=== PATIENT | female | born 1940 | race Caucasian/White ===

== ENCOUNTER 2023-04-11 11:06 | Inpatient (IN) | payer MEDICARE, BC ==
[2023-04-11] MEDS ORDERED: MORPHINE SULFATE 4 MG/ML SYRINGE IV STA (11:30)
--- NOTE | 2023-04-11 11:33 | ED ---
General Adult HPI - General Chief complaint: Back Pain/Injury Stated complaint: Back pain Time Seen by Provider: 04/11/23 11:14 Source: patient, family, RN notes reviewed Mode of arrival: ambulatory Limitations: no limitations - History of Present Illness Initial comments: Patient is a pleasant 82-year-old female presenting to the emergency department with concerns with back pain. Onset of symptoms was around 1 AM. Patient did have to turn back to turn off her lamp when going to bed. Patient questions if she pulled her back at that time. Patient denies dyspnea. Patient states discomfort does increase with movement and deep breaths. Patient does have chronic lower back pain however this is more upper. Patient states when she takes a deep breath pain does radiate towards the chest. Otherwise no chest discomfort at all. - Related Data Allergies Allergy/AdvReac Type Severity Reaction Status Date / Time No Known Allergies Allergy Verified 04/11/23 11:12 Review of Systems ROS Statement: Those systems with pertinent positive or pertinent negative responses have been documented in the HPI. ROS Other: All systems not noted in ROS Statement are negative. Constitutional: Denies: fever Eyes: Denies: eye pain ENT: Denies: ear pain Respiratory: Denies: dyspnea Cardiovascular: Reports: as per HPI Endocrine: Denies: fatigue Gastrointestinal: Denies: abdominal pain Genitourinary: Denies: dysuria Musculoskeletal: Reports: as per HPI Past Medical History Additional Past Medical History / Comment(s): High Cholestrol History of Any Multi-Drug Resistant Organisms: None Reported Past Surgical History: No Surgical Hx Reported Past Psychological History: No Psychological Hx Reported Smoking Status: Current every day smoker Past Alcohol Use History: None Reported Past Drug Use History: None Reported General Exam Limitations: no limitations General appearance: alert, in no apparent distress Head exam: Present: normocephalic Eye exam: Present: normal appearance Neck exam: Present: normal inspection Respiratory exam: Present: normal lung sounds bilaterally. Absent: chest wall tenderness Cardiovascular Exam: Present: regular rate, normal rhythm Expanded Peripheral pulses: 2+: Radial (R), Radial (L), Dorsalis Pedis (R), Dorsalis Pedis (L) GI/Abdominal exam: Present: soft. Absent: distended, tenderness, pulsatile mass Extremities exam: Present: normal inspection. Absent: pedal edema, calf tenderness Back exam: Present: tenderness (Mild tenderness right upper thoracic region). Absent: vertebral tenderness Neurological exam: Present: alert. Absent: motor sensory deficit Psychiatric exam: Present: normal affect, normal mood Skin exam: Present: normal color Course Vital Signs 04/11/23 04/11/23 11:08 12:12 Temperature 98.2 F Pulse Rate 112 H 102 H Respiratory 17 20 Rate Blood Pressure 112/77 130/80 O2 Sat by Pulse 98 99 Oximetry EKG Findings - EKG Results: EKG: interpreted by ERMD (Nonspecific ST-T), sinus rhythm, normal axis, normal QRS EKG shows: tachycardia Medical Decision Making - Medical Decision Making Was pt. sent in by a medical professional or institution (, PA, PNEUMATIC DRUM SANDER, urgent ca re, hospital, or halfway...) When possible be specific @ -No Did you speak to anyone other than the patient for history (EMS, parent, family, police, friend...)? What history was obtained from this source @ -No Did you review nursing and triage notes (agree or disagree)? Why? @ -I reviewed and agree with nursing and triage notes Were old charts reviewed (outside hosp., previous admission, EMS record, old EKG, old radiological studies, urgent care reports/EKG's, halfway records)? Report findings @ -No old charts were reviewed Differential Diagnosis (chest pain, altered mental status, abdominal pain women, abdominal pain men, vaginal bleeding, weakness, fever, dyspnea, syncope, headache, dizziness, GI bleed, back pain, seizure, CVA, palpatations, mental health, musculoskeletal)? @ -Differential Chest Pain: Stable Angina, Unstable Angina, STEMI, NSTEMI Aortic Dissection, Pneumothorax, Musculoskeletal, Esophageal Spasm GERD, Cholecystitis, Pancreatitis, Zoster, this is not meant to be an all-inclusive list. EKG interpreted by me (3pts min.). @ -As above X-rays interpreted by me (1pt min.). @ -Chest x-ray shows no acute process CT interpreted by me (1pt min.). @ -None done U/S interpreted by me (1pt. min.). @ -None done What testing was considered but not performed or refused? (CT, X-rays, U/S, labs)? Why? @ -None What meds were considered but not given or refused? Why? @ -None Did you discuss the management of the patient with other professionals (professionals i.e. , PA, PNEUMATIC DRUM SANDER, lab, RT, psych nurse, social service coordinator, press operator printing, teacher, benefits officer, immigration case worker)? Give summary @ -Case was discussed with Dr. Meza, who will admit covering Dr. Gomez. Case also discussed with Dr. Pichardo who agrees with heparin and will consult Was smoking cessation discussed for >3mins.? @ -No Was critical care preformed (if so, how long)? @ -32 minutes critical care time Were there social determinants of health that impacted care today? How? (Homelessness, low income, unemployed, alcoholism, drug addiction, transportati on, low edu. Level, literacy, decrease access to med. care, intermediate, rehab)? @ -No Was there de-escalation of care discussed even if they declined (Discuss DNR or withdrawal of care, Hospice)? DNR status @ -No What co-morbidities impacted this encounter? (DM, HTN, Smoking, COPD, CAD, Cancer, CVA, ARF, Chemo, Hep., AIDS, mental health diagnosis, sleep apnea, morbid obesity)? @ -None Was patient admitted / discharged? Hospital course, mention meds given and route, prescriptions, significant lab abnormalities, going to OR and other pertinent info. @ -Patient reevaluated and symptom-free. Patient does have elevated troponin and will be admitted with cardiac consult. Heparin will be started. Admission orders written. Undiagnosed new problem with uncertain prognosis? @ -No Drug Therapy requiring intensive monitoring for toxicity (Heparin, Nitro, Insulin, Cardizem)? @ -Patient will be placed on heparin drip needing monitoring Were any procedures done? @ -No Diagnosis/symptom? @ -NSTEMI a Acute, or Chronic, or Acute on Chronic? @ acute ] Uncomplicated (without systemic symptoms) or Complicated (systemic symptoms)? @ -default Side effects of treatment? @ -No Exacerbation, Progression, or Severe Exacerbation? @ -No Poses a threat to life or bodily function? How? (Chest pain, [place], [place], pneumonia, PE, COPD, DKA, ARF, appy, cholecystitis, CVA, Diverticulitis, Homicidal, Suicidal, threat to staff... and all critical care pts) @ -No - Lab Data Result diagrams: 04/11/23 11:38 11/18/23 11:38 Lab Results 04/11/23 04/11/23 04/11/23 Range/Units 11:38 11:38 11:38 WBC 12.4 H (3.8-10.6) k/uL RBC 4.31 (3.80-5.40) m/uL Hgb 13.9 (11.4-16.0) gm/dL Hct 42.1 (34.0-46.0) % MCV 97.7 (80.0-100.0) fL MCH 32.1 (25.0-35.0) pg MCHC 32.9 (31.0-37.0) g/dL RDW 12.8 (11.5-15.5) % Plt Count 159 (150-450) k/uL MPV 8.1 Neutrophils % 87 % Lymphocytes % 6 % Monocytes % 5 % Eosinophils % 1 % Basophils % 0 % Neutrophils # 10.8 H (1.3-7.7) k/uL Lymphocytes # 0.8 L (1.0-4.8) k/uL Monocytes # 0.6 (0-1.0) k/uL Eosinophils # 0.1 (0-0.7) k/uL Basophils # 0.0 (0-0.2) k/uL PT 10.4 (10.0-12.5) sec INR 0.9 (<1.2) APTT 24.8 (22.0-30.0) sec D-Dimer 0.58 (<0.60) mg/L FEU Sodium 138 (137-145) mmol/L Potassium 4.5 (3.5-5.1) mmol/L Chloride 102 (98-107) mmol/L Carbon Dioxide 25 (22-30) mmol/L Anion Gap 11 mmol/L BUN 28 H (7-17) mg/dL Creatinine 1.40 H (0.52-1.04) mg/dL Est GFR (CKD-EPI)AfAm 40 (>60 ml/min/1.73 sqM) Est GFR (CKD-EPI)NonAf 35 (>60 ml/min/1.73 sqM) Glucose 131 H (74-99) mg/dL Calcium 9.3 (8.4-10.2) mg/dL Magnesium 1.9 (1.6-2.3) mg/dL Total Bilirubin 0.7 (0.2-1.3) mg/dL AST 48 H (14-36) U/L ALT 24 (4-34) U/L Alkaline Phosphatase 83 (38-126) U/L Troponin I (0.000-0.034) ng/mL Total Protein 6.8 (6.3-8.2) g/dL Albumin 4.0 (3.5-5.0) g/dL 04/11/23 Range/Units 11:38 WBC (3.8-10.6) k/uL RBC (3.80-5.40) m/uL Hgb (11.4-16.0) gm/dL Hct (34.0-46.0) % MCV (80.0-100.0) fL MCH (25.0-35.0) pg MCHC (31.0-37.0) g/dL RDW (11.5-15.5) % Plt Count (150-450) k/uL MPV Neutrophils % % Lymphocytes % % Monocytes % % Eosinophils % % Basophils % % Neutrophils # (1.3-7.7) k/uL Lymphocytes # (1.0-4.8) k/uL Monocytes # (0-1.0) k/uL Eosinophils # (0-0.7) k/uL Basophils # (0-0.2) k/uL PT (10.0-12.5) sec INR (<1.2) APTT (22.0-30.0) sec D-Dimer (<0.60) mg/L FEU Sodium (137-145) mmol/L Potassium (3.5-5.1) mmol/L Chloride (98-107) mmol/L Carbon Dioxide (22-30) mmol/L Anion Gap mmol/L BUN (7-17) mg/dL Creatinine (0.52-1.04) mg/dL Est GFR (CKD-EPI)AfAm (>60 ml/min/1.73 sqM) Est GFR (CKD-EPI)NonAf (>60 ml/min/1.73 sqM) Glucose (74-99) mg/dL Calcium (8.4-10.2) mg/dL Magnesium (1.6-2.3) mg/dL Total Bilirubin (0.2-1.3) mg/dL AST (14-36) U/L ALT (4-34) U/L Alkaline Phosphatase (38-126) U/L Troponin I 4.730 H* (0.000-0.034) ng/mL Total Protein (6.3-8.2) g/dL Albumin (3.5-5.0) g/dL Critical Care Time Critical Care Time: Yes Total Critical Care Time: 32 Disposition Clinical Impression: NSTEMI (non-ST elevated myocardial infarction) Disposition: ADMITTED IP TO THIS [facility] Condition: Serious Is patient prescribed a controlled substance at d/c from ED?: No Referrals: Willy Gomez MD [Primary Care Provider] - 1-2 days Time of Disposition: 12:57
[2023-04-11 11:50] LABS: Basophils % (A) 0 %; Eosinophils # (A) 0.1 k/uL (0-0.7); Eosinophils % (A) 1 %; HCT 42.1 % (34.0-46.0); HGB 13.9 gm/dL (11.4-16.0); Lymphocytes # (A) 0.8 k/uL (1.0-4.8); Lymphocytes % (A) 6 %; MCH 32.1 pg (25.0-35.0); MCHC 32.9 g/dL (31.0-37.0); MCV 97.7 fL (80.0-100.0); Mean Platelet Volume 8.1; Monocytes # (A) 0.6 k/uL (0-1.0); Monocytes % (A) 5 %; Neutrophils # (A) 10.8 k/uL (1.3-7.7); Neutrophils % (A) 87 %; Platelet Count 159 k/uL (150-450); RBC 4.31 m/uL (3.80-5.40); RDW 12.8 % (11.5-15.5); WBC 12.4 k/uL (3.8-10.6)
[2023-04-11 12:04] LABS: ALT 24 U/L (4-34); AST 48 U/L (14-36); African American GFR (CKD) 40 (>60 ml/min/1.73 sqM); Alkaline Phosphatase 83 U/L (38-126); Anion Gap 11 mmol/L; Blood Urea Nitrogen 28 mg/dL (7-17); Calcium 9.3 mg/dL (8.4-10.2); Carbon Dioxide 25 mmol/L (22-30); Chloride 102 mmol/L (98-107); Glucose 131 mg/dL (74-99); INR 0.9 (<1.2); Magnesium 1.9 mg/dL (1.6-2.3); Non-African American GFR(CKD) 35 (>60 ml/min/1.73 sqM); Partial Thromboplastin Time 24.8 sec (22.0-30.0); Potassium 4.5 mmol/L (3.5-5.1); Prothrombin Time 10.4 sec (10.0-12.5); Sodium 138 mmol/L (137-145); Total Bilirubin 0.7 mg/dL (0.2-1.3); Total Protein 6.8 g/dL (6.3-8.2)
--- NOTE | 2023-04-11 12:22 | XR ---
EXAMINATION TYPE: XR chest 2V DATE OF EXAM: 04/11/2023 COMPARISON: None HISTORY: 82-year-old female with chest pain TECHNIQUE: AP and lateral views FINDINGS: Heart normal size. Atherosclerotic calcifications. Interstitial prominence and hyperinflation. No con solidation or pleural effusion. IMPRESSION: COPD and chronic appearing changes. No acute process seen.
[2023-04-11] MEDS ORDERED: ONDANSETRON 4 MG/2 ML VIAL IVP STA (12:42)
[2023-04-11] MEDS ORDERED: MORPHINE SULFATE 2 MG/ML SYRINGE IVP PRN (12:57)
[2023-04-11] MEDS ORDERED: HEPARIN SODIUM 1,000 UN/ML (10ML VL) IV ONE (12:57)
[2023-04-11] MEDS ORDERED: ASPIRIN 81 MG PO STA (12:57)
[2023-04-11] MEDS ORDERED: NITROGLYCERIN SL TABS 0.4 MG TAB SUBLINGUAL PRN (12:57)
--- NOTE | 2023-04-11 13:17 | P.HPIM ---
History of Present Illness H&P Date: 04/11/23 Maria L Smith, is an 82-year-old female patient of Dr. Gomez, who presented to [facility] emergency room with a chief complaint of upper back pain, that started at 1 AM, initially patient thought that she has pulled a muscle, however her pain worsened, and was increasing with movement and taking deep breath, she decided to come to emergency room for further evaluation. She was evaluated in the emergency room vital examination on presentation revealed a temperature of 98.2 pulse 112 respiration 17 blood pressure 112/77 pulse ox 98% on room air Laboratory data reveals a white blood count of 12.4 hemoglobin 13.9 platelet count 159 d-dimer 0.59 BUN 28 creatinine 1.4 troponin level 4.73 Testing in the emergency room revealed EKG done in the emergency room revealed sinus tachycardia with right atrial enlargement and left atrial enlargement,, and ST depression in anterior leads, chest x-ray revealed COPD and chronic appearing changes no acute process seen. Patient was admitted to medical floor for further evaluation and treatment. Patient has a known history of hyperlipidemia and chronic tobacco use, she is somewhat maintained on Lipitor 40 mg by mouth daily otherwise she denies any medical problems and denies taking any other medications. Past Medical History Additional Past Medical History / Comment(s): High Cholestrol History of Any Multi-Drug Resistant Organisms: None Reported Past Surgical History: No Surgical Hx Reported Past Psychological History: No Psychological Hx Reported Smoking Status: Current every day smoker Past Alcohol Use History: None Reported Past Drug Use History: None Reported Medications and Allergies Allergies Allergy/AdvReac Type Severity Reaction Status Date / Time No Known Allergies Allergy Verified 04/11/23 11:12 Physical Exam Vitals: Vital Signs Temp Pulse Resp BP Pulse Ox 04/11/23 12:12 102 H 20 130/80 99 04/11/23 11:08 98.2 F 112 H 17 112/77 98 Intake and Output 04/10/23 04/11/23 04/11/23 22:59 06:59 14:59 Other: Weight 48.081 kg In general patient is alert and oriented x 3 in no distress HEENT head normocephalic and atraumatic Neck is supple no JVD no goiter no lymphadenopathy no carotid bruit Chest examination is clear to auscultation no crackles no wheezing Cardiac exam reveals regular heart sounds S1 and S2 no gallops no murmurs Abdomen is soft nontender no organomegaly with normal bowel sounds Extremity exam reveals no edema no cyanosis or clubbing Neurological examination reveals no gross focal deficits Results CBC & Chem 7: 04/11/23 11:38 04/11/23 11:38 Labs: Abnormal Lab Results - Last 24 Hours (Table) 04/11/23 04/11/23 04/11/23 Range/Units 11:38 11:38 11:38 WBC 12.4 H (3.8-10.6) k/uL Neutrophils # 10.8 H (1.3-7.7) k/uL Lymphocytes # 0.8 L (1.0-4.8) k/uL BUN 28 H (7-17) mg/dL Creatinine 1.40 H (0.52-1.04) mg/dL Glucose 131 H (74-99) mg/dL AST 48 H (14-36) U/L Troponin I 4.730 H* (0.000-0.034) ng/mL Assessment and Plan Plan: Acute upper back pain Elevated troponin level Underlying history of hyperlipidemia Underlying history of tobacco use At this time patient was evaluated in emergency room and started on IV heparin Home medications reviewed and reordered Serial EKG and cardiac enzymes ordered Echocardiogram ordered cardiology consultation requested Will follow closely
[2023-04-11] MEDS: HEPARIN SOD,PORK IN 0.45% NACL 25,000 UNIT in 0.45% NACL 1 250ML.BAG IV SCH (13:32)
--- NOTE | 2023-04-11 16:29 | CA ---
Transthoracic Echo Report Name: Maria L Smith Age: 82 Gender: F : 1940 Exam Date: 04/11/2023 13:57 Exam Location: [place] Echo Ht (in): 64 Wt (lb): 106 Ordering Physician: Navdeep Hernandes DO Attending/Referring Phys: Steam Heating Installer Ebonie Conde [facility] Procedure CPT: Indications: nstemi Cardiac Hx: Technical Quality: Technically difficult study Contrast 1: Total Dose (mL): Contrast 2: Total Dose (mL): MEASUREMENTS (Male / Female) Normal Values 2D ECHO LV Diastolic Diameter PLAX 3.2 cm 4.2 - 5.9 / 3.9 - 5.3 cm LV Systolic Diameter PLAX 1.9 cm IVS Diastolic Thickness 1.2 cm 0.6 - 1.0 / 0.6 - 0.9 cm LVPW Diastolic Thickness 1.0 cm 0.6 - 1.0 / 0.6 - 0.9 cm LV Relative Wall Thickness 0.7 LVOT Diameter 2.0 cm Ascending Aorta Diameter 2.8 cm M-MODE Aortic Root Diameter MM 2.3 cm LA Systolic Diameter MM 2.7 cm LA Ao Ratio MM 1.2 AV Cusp Separation MM 1.7 cm DOPPLER AV Peak Velocity 119.8 cm/s AV Peak Gradient 5.7 mmHg AV Mean Velocity 96.1 cm/s AV Mean Gradient 3.9 mmHg AV Velocity Time Integral 19.0 cm LVOT Peak Velocity 89.4 cm/s LVOT Peak Gradient 3.2 mmHg LVOT Velocity Time Integral 15.8 cm LVOT Stroke Volume 48.8 cm??? LVOT Stroke Volume Index 32.7 ml/m??? LVOT Cardiac Index 3694.3 cm???/min???m??? AV Area Cont Eq vti 2.6 cm??? AV Area Cont Eq pk 2.3 cm??? Mitral E Point Velocity 59.4 cm/s Mitral A Point Velocity 98.8 cm/s Mitral E to A Ratio 0.6 MV Deceleration Time 123.7 ms LV E' Lateral Velocity 5.2 cm/s Mitral E to LV E' Lateral Ratio 11.5 LV E' Septal Velocity 5.1 cm/s Mitral E to LV E' Septal Ratio 11.8 Right Atrial Pressure 3.0 mmHg FINDINGS Left Ventricle Moderately increased septal wall thickness. Mildly increased posterior wall thickness. Small left ventricular cavity. Hyperdynamic left ventricular systolic function. Left ventricular ejection fraction is estimated at 65-70%. Right Ventricle Normal right ventricular size. Unable to estimate the right ventricular systolic pressure. Right Atrium Normal right atrial size. Left Atrium Normal left atrial size. Mitral Valve Mitral annular calcification. Mitral valve thickened. No mitral regurgitation. Aortic Valve Trileaflet aortic valve. Aortic valve sclerosis. No aortic regurgitation. Tricuspid Valve Tricuspid valve not well visualized. No tricuspid regurgitation. Pulmonic Valve Pulmonic valve not well visualized. Pericardium Minimal pericardial effusion (normal variant). Aorta Normal size aortic root and proximal ascending aorta. CONCLUSIONS LVH with hyperdynamic function Previewed by: Dr. Renzo Pichardo MD (Electronically Signed) Final Date: 11 April 2023 16:29
[2023-04-12] MEDS ORDERED: ASPIRIN 325 MG TAB PO SCH (09:00)
--- NOTE | 2023-04-12 09:42 | P.PN ---
Subjective Progress Note Date: 04/12/23 Maria L Smith, is an 82-year-old female patient of Dr. Gomez, who presented to [facility] emergency room with a chief complaint of upper back pain, that started at 1 AM, initially patient thought that she has pulled a muscle, however her pain worsened, and was increasing with movement and taking deep breath, she decided to come to emergency room for further evaluation. She was evaluated in the emergency room vital examination on presentation revealed a temperature of 98.2 pulse 112 respiration 17 blood pressure 112/77 pulse ox 98% on room air Laboratory data reveals a white blood count of 12.4 hemoglobin 13.9 platelet count 159 d-dimer 0.59 BUN 28 creatinine 1.4 troponin level 4.73 Testing in the emergency room revealed EKG done in the emergency room revealed sinus tachycardia with right atrial enlargement and left atrial enlargement,, and ST depression in anterior leads, chest x-ray revealed COPD and chronic appearing changes no acute process seen. Patient was admitted to medical floor for further evaluation and treatment. Patient has a known history of hyperlipidemia and chronic tobacco use, she is somewhat maintained on Lipitor 40 mg by mouth daily otherwise she denies any medical problems and denies taking any other medications. On 04/12/2023 patient is alert and oriented 3. Patient remains on heparin drip. Awaiting cardiology input. Current vital signs temp 98.1, heart rate 84, respiratory rate 14, blood pressure 94/54. Objective - Vital Signs Vital signs: Vital Signs Temp 98.1 F 04/12/23 03:26 Pulse 84 04/12/23 03:26 Resp 14 04/12/23 03:26 BP 95/57 04/12/23 03:26 Pulse Ox 95 04/12/23 03:26 FiO2 Intake & Output 04/11/23 04/12/23 04/12/23 18:59 06:59 18:59 Intake Total 120 Balance 120 Weight 48.081 kg 44.5 kg Intake: Oral 120 Other: # Voids 1 1 - Exam In general patient is alert and oriented x 3 in no distress HEENT head normocephalic and atraumatic Neck is supple no JVD no goiter no lymphadenopathy no carotid bruit Chest examination is clear to auscultation no crackles no wheezing Cardiac exam reveals regular heart sounds S1 and S2 no gallops no murmurs Abdomen is soft nontender no organomegaly with normal bowel sounds Extremity exam reveals no edema no cyanosis or clubbing Neurological examination reveals no gross focal deficits - Labs CBC & Chem 7: 04/11/23 11:38 04/11/23 11:38 Labs: Abnormal Lab Results - Last 24 Hours (Table) 04/11/23 04/11/23 04/11/23 Range/Units 11:38 11:38 11:38 WBC 12.4 H (3.8-10.6) k/uL Neutrophils # 10.8 H (1.3-7.7) k/uL Lymphocytes # 0.8 L (1.0-4.8) k/uL APTT (22.0-30.0) sec BUN 28 H (7-17) mg/dL Creatinine 1.40 H (0.52-1.04) mg/dL Glucose 131 H (74-99) mg/dL AST 48 H (14-36) U/L Troponin I 4.730 H* (0.000-0.034) ng/mL 04/11/23 04/11/23 04/11/23 Range/Units 15:00 19:14 19:14 WBC (3.8-10.6) k/uL Neutrophils # (1.3-7.7) k/uL Lymphocytes # (1.0-4.8) k/uL APTT 49.8 H (22.0-30.0) sec BUN (7-17) mg/dL Creatinine (0.52-1.04) mg/dL Glucose (74-99) mg/dL AST (14-36) U/L Troponin I 4.660 H* 4.930 H* (0.000-0.034) ng/mL Assessment and Plan Plan: Acute upper back pain Elevated troponin level Underlying history of hyperlipidemia Underlying history of tobacco use At this time patient was evaluated in emergency room and started on IV heparin Home medications reviewed and reordered Serial EKG and cardiac enzymes ordered Echocardiogram ordered cardiology consultation requested Will follow closely
[2023-04-12 09:57] LABS: Mean Platelet Volume 8.6; Platelet Count 146 k/uL (150-450)
[2023-04-12] MEDS: ASPIRIN 81 MG PO SCH (10:13)
[2023-04-12] MEDS ORDERED: HEPARIN SODIUM 1,000 UN/ML (10ML VL) IV PRN (10:51)
[2023-04-12] MEDS: ATORVASTATIN 80 MG TAB PO SCH (11:04)
[2023-04-12] MEDS: SODIUM CHLORIDE 0.9% 1,000 ML IV SCH ×2 (11:04→20:21)
[2023-04-12] MEDS ORDERED: DEXTROSE 5% IN WATER 250 ML with AMIODARONE 300 MG IV ONE (12:00)
--- NOTE | 2023-04-12 12:30 | P.CRDCN ---
History of Present Illness Consult date: 04/12/23 Consult reason: non-Q-wave [place] History of present illness: The patient is an 82-year-old female who presented to the emergency room with new onset of chest discomfort. She states awoke in the middle of the night on Thursday with new onset of chest discomfort. Throughout the next day the pain continued and she also reported progressive shortness of breath. At the time of my examination she was resting comfortably in bed. She states she does feel the pain and has shortness of breath when ambulating around the room. Just after our evaluation, nursing staff reported that the patient went into A. fib with RVR. Verbal orders to start amiodarone were given. DIAGNOSTICS: EKG shows sinus mechanism with MO depression Echocardiogram reveals hyperdynamic LV function and LVH Telemetry revealed new onset of A. fib with RVR Chest x-ray shows COPD and chronic appearing changes. No acute process Lab data: 12.4, hemoglobin 13.9, hematocrit 42.1, platelet 159, d-dimer 0.58, sodium 138, potassium 4.5, BUN 28, creatinine 1.4, AST 40, ALT 24, troponin 4.7, 4.6, 4.9 REVIEW OF SYSTEMS: No fever or chills. No cough or expectoration. No diaphores is. Patient denies headache, dizziness, blurred vision, double vision. Patient denies any stomach discomfort. No nausea, vomiting. No hematochezia. No hematemesis. Denies any black stools or blood in his stools. Denies dysuria or hematuria. No muscle weakness or numbness. Positive for shortness of breath with exertion. PHYSICAL EXAMINATION: This is a 82-year-old female in no apparent distress at the time of my examination. HEENT: Head is atraumatic, normocephalic. Pupils are equal, round. Sclerae anicteric. Conjunctivae are clear. Mucous membranes of the mouth are moist. Neck is supple. There is no jugular venous distention. No carotid bruit is heard. CHEST EXAMINATION: Lungs are diminished to auscultation. No chest wall tenderness is noted on palpation or with deep breathing. HEART EXAMINATION: Heart regular rate and rhythm. S1, S2 heard. No murmurs, gallops or rub. ABDOMEN: Soft, nontender. Bowel sounds are heard. No organomegaly noted. EXTREMITIES: 2+ peripheral pulses with no evidence of peripheral edema and no calf tenderness noted. NEUROLOGIC EXAMINATION: Patient is awake, alert and oriented x3. FINAL ASSESSMENT AND PLAN: Non-Q-wave myocardial infarction LVH Paroxysmal atrial fibrillation, new onset Acute kidney injury Dyslipidemia Current smoker PLAN: Amiodarone bolus and drip for new onset of atrial fibrillation Start the patient on IV fluids in preparation for coronary angiogram MP after midnight Proceed with coronary angiogram tomorrow I am dictating on behalf of Dr Renzo Pichardo's history/physical and assessment/plan. Past Medical History Additional Past Medical History / Comment(s): High Cholestrol History of Any Multi-Drug Resistant Organisms: None Reported Past Surgical History: No Surgical Hx Reported Past Psychological History: No Psychological Hx Reported Smoking Status: Current every day smoker Past Alcohol Use History: None Reported Past Drug Use History: None Reported Medications and Allergies Home Medications Medication Instructions Recorded Confirmed Type Pravastatin Sodium [Pravachol] 40 mg PO HS 04/11/23 04/11/23 History Allergies Allergy/AdvReac Type Severity Reaction Status Date / Time No Known Allergies Allergy Verified 04/11/23 13:29 Physical Exam Vitals: Vital Signs Temp Pulse Pulse Resp BP BP BP 04/12/23 08:09 98.0 F 104 H 16 84/54 94/54 04/12/23 03:26 98.1 F 84 14 95/57 04/11/23 23:20 98.3 F 104 H 16 112/67 04/11/23 19:40 98.3 F 96 18 83/52 96/55 04/11/23 17:25 98.1 F 90 16 96/61 04/11/23 16:14 68 16 120/67 04/11/23 15:00 76 20 120/76 04/11/23 13:38 106 H 20 172/85 04/11/23 12:12 102 H 20 130/80 Pulse Ox 04/12/23 08:09 04/12/23 03:26 95 04/11/23 23:20 96 04/11/23 19:40 94 L 04/11/23 17:25 95 04/11/23 16:14 98 04/11/23 15:00 98 04/11/23 13:38 100 04/11/23 12:12 99 Intake and Output 04/11/23 04/12/23 04/12/23 22:59 06:59 14:59 Intake Total 120 124.44 Balance 120 124.44 Intake: Intake, IV Titration 124.44 Amount Heparin Sod,Pork in 0.45% 124.44 NaCl 25,000 unit In 0.45 % NaCl 1 250ml.bag @ 12 UNITS/KG/HR 5.77 mls/hr IV .Q24H DOUGLAS Rx#: [id number] Oral 120 0 Other: # Voids 1 1 1 Weight 48.081 kg 44.5 kg Results 04/12/23 09:09 04/11/23 11:38 Cardiac Enzymes 04/11/23 04/11/23 04/11/23 Range/Units 11:38 15:00 19:14 Troponin I 4.730 H* 4.660 H* 4.930 H* (0.000-0.034) ng/mL Coagulation 04/11/23 04/12/23 Range/Units 19:14 09:09 APTT 49.8 H 38.0 H (22.0-30.0) sec CBC 04/12/23 Range/Units 09:09 Plt Count 146 L (150-450) k/uL Current Medications Generic Name Dose Route Start Last Admin Trade Name Freq PRN Reason Stop Dose Admin Aspirin 81 mg 04/12/23 10:15 04/12/23 10:13 Aspirin 81 Mg PO Not Given DAILY [facility] Atorvastatin Calcium 80 mg 04/12/23 10:15 04/12/23 11:04 Atorvastatin 80 Mg Tab PO 80 mg DAILY DOUGLAS Administration Heparin Sodium (Porcine) 0 unit 04/12/23 10:51 04/12/23 11:04 Heparin Sodium 1,000 Un/Ml (10ml Vl) IV 1,100 unit PER PROTOCOL PRN Administration Low PTT Protocol Heparin Sodium/Sodium Chloride 250 mls @ 5.77 mls/hr 04/11/23 13:00 04/12/23 11:06 25,000 unit/ Sodium Chloride IV 14 units/kg/hr .Q24H DOUGLAS 6.731 mls/hr Titration Protocol 12 UNITS/KG/HR Sodium Chloride 1,000 mls @ 100 mls/hr 04/12/23 10:15 04/12/23 11:04 Saline 0.9% IV 100 mls/hr .Q10H DOUGLAS Administration Heparin Sodium (Porcine) 10, 1,001 mls @ 999 mls/hr 04/13/23 07:00 000 unit/ Sodium Chloride IRRIGATION 04/13/23 23:00 ONCE PRN INTRA-OP Heparin Sodium (Porcine) 2,500 250.5 mls @ 250 mls/hr 04/13/23 07:00 unit/ Sodium Chloride IRRIGATION 04/13/23 23:00 ONCE PRN INTRA-OP Amiodarone HCl 300 mg/ 256 mls @ 128 mls/hr 04/12/23 12:00 04/12/23 11:59 Dextrose/Water IV 04/12/23 13:59 128 mls/hr .Q2H ONE Administration Protocol Amiodarone HCl 450 mg/ 250 mls @ 16.667 mls/hr 04/12/23 20:00 Dextrose/Water IV 04/13/23 13:59 .Q15H DOUGLAS Protocol 0.5 MG/MIN Amiodarone HCl 360 mg/ 200 mls @ 33.333 mls/hr 04/12/23 14:00 Dextrose/Water IV 04/12/23 19:59 .Q6H ONE Protocol 1 MG/MIN Morphine Sulfate 2 mg 04/11/23 12:57 Morphine Sulfate 2 Mg/Ml Syringe IVP Q5M PRN Chest Pain Nitroglycerin 0.4 mg 04/11/23 12:57 04/11/23 13:37 Nitroglycerin Sl Tabs 0.4 Mg Tab SUBLINGUAL 0.4 mg Q5M PRN Administration Chest Pain Intake and Output 04/11/23 04/12/23 04/12/23 22:59 06:59 14:59 Intake Total 120 124.44 Balance 120 124.44 Intake: Intake, IV Titration 124.44 Amount Heparin Sod,Pork in 0.45% 124.44 NaCl 25,000 unit In 0.45 % NaCl 1 250ml.bag @ 12 UNITS/KG/HR 5.77 mls/hr IV .Q24H DOUGLAS Rx#: [id number] Oral 120 0 Other: # Voids 1 1 1 Weight 48.081 kg 44.5 kg 04/12/23 09:09 04/11/23 11:38
[2023-04-12 12:46] LABS: Chol/HDL Ratio 1.74 Ratio; LDL Cholesterol,Calculated 34.9 mg/dL (0.0-131.0); VLDL Calculation 15.14 mg/dL (5.00-40.00)
[2023-04-12] MEDS ORDERED: AMIODARONE 360 MG in DEXTROSE 5% IN WATER 200 ML IV ONE ×2 (14:00)
[2023-04-12] MEDS: HEPARIN SOD,PORK IN 0.45% NACL 25,000 UNIT in 0.45% NACL 1 250ML.BAG IV SCH (19:30)
[2023-04-12] MEDS: AMIODARONE 450 MG in DEXTROSE 5% IN WATER 250 ML IV SCH ×2 (20:20)
[2023-04-13 06:11] LABS: Glucose,Whole Blood 146 mg/dL (70-110)
[2023-04-13] MEDS: HEPARIN SOD,PORK IN 0.45% NACL 25,000 UNIT in 0.45% NACL 1 250ML.BAG IV SCH (06:21)
[2023-04-13] MEDS: SODIUM CHLORIDE 0.9% 1,000 ML IV SCH ×2 (06:21→20:33)
[2023-04-13] MEDS ORDERED: HEPARIN SODIUM,PORCINE (1 ML) 2,500 UNIT in SODIUM CHLORIDE 0.9% 250 ML IRRIGATION PRN (07:00)
[2023-04-13] MEDS ORDERED: HEPARIN SODIUM,PORCINE 10,000 UNIT in SODIUM CHLORIDE 0.9% 1,000 ML IRRIGATION PRN (07:00)
[2023-04-13] MEDS: ASPIRIN 81 MG PO SCH (08:15)
[2023-04-13] MEDS ORDERED: ASPIRIN 325 MG TAB PO STA (08:15)
[2023-04-13] MEDS: ATORVASTATIN 80 MG TAB PO SCH (08:38)
[2023-04-13 08:52] LABS: Basophils % (A) 0 %; Eosinophils % (A) 0 %; HCT 36.3 % (34.0-46.0); HGB 11.6 gm/dL (11.4-16.0); Lymphocytes # (A) 1.1 k/uL (1.0-4.8); Lymphocytes % (A) 14 %; MCH 31.8 pg (25.0-35.0); MCHC 31.9 g/dL (31.0-37.0); MCV 99.6 fL (80.0-100.0); Mean Platelet Volume 9.4; Monocytes # (A) 0.4 k/uL (0-1.0); Monocytes % (A) 5 %; Neutrophils # (A) 6.2 k/uL (1.3-7.7); Neutrophils % (A) 78 %; Platelet Count 141 k/uL (150-450); RBC 3.65 m/uL (3.80-5.40); WBC 7.9 k/uL (3.8-10.6)
[2023-04-13 09:07] LABS: ALT 54 U/L (4-34); AST 57 U/L (14-36); African American GFR (CKD) 35 (>60 ml/min/1.73 sqM); Albumin 3.2 g/dL (3.5-5.0); Alkaline Phosphatase 106 U/L (38-126); Anion Gap 9 mmol/L; Blood Urea Nitrogen 37 mg/dL (7-17); Calcium 8.2 mg/dL (8.4-10.2); Carbon Dioxide 20 mmol/L (22-30); Chloride 105 mmol/L (98-107); Glucose 116 mg/dL (74-99); Non-African American GFR(CKD) 31 (>60 ml/min/1.73 sqM); Potassium 4.6 mmol/L (3.5-5.1); Sodium 134 mmol/L (137-145); Total Bilirubin 0.5 mg/dL (0.2-1.3); Total Protein 5.8 g/dL (6.3-8.2)
[2023-04-13] MEDS ORDERED: HEPARIN SODIUM 1,000 UN/ML (10ML VL) ONE (10:20)
[2023-04-13] MEDS ORDERED: LIDOCAINE 1% INJ 10MG/ML (20 ML MDV) ONE (10:20)
[2023-04-13] MEDS ORDERED: VERAPAMIL 2.5 MG/ML 2 ML AMP ONE (10:20)
[2023-04-13] MEDS: MIDAZOLAM 2 MG/2 ML VIAL IVP ONE ×2 (10:29→11:06)
[2023-04-13] MEDS ORDERED: LIDOCAINE 1% INJ 10MG/ML (20 ML MDV) SQ ONE (10:30)
[2023-04-13] MEDS ORDERED: VERAPAMIL SYRINGE (5 MG/10 ML) INTRAARTER ONE (10:33)
[2023-04-13] MEDS ORDERED: IV FLUID CONTINUATION 1,000 ML IV ONE (10:35)
[2023-04-13] MEDS: HEPARIN SODIUM 1,000 UN/ML (10ML VL) IV ONE ×2 (10:55→11:22)
[2023-04-13] MEDS ORDERED: niCARdipine 25 MG/10 ML VIAL ONE (11:00)
[2023-04-13] MEDS ORDERED: NITROGLYCERIN 1000MCG/10ML SYRINGE INTRACORON ONE (11:00)
[2023-04-13] MEDS ORDERED: CLOPIDOGREL 75 MG TAB ONE (11:01)
[2023-04-13] MEDS ORDERED: CLOPIDOGREL 75 MG TAB PO ONE (11:04)
[2023-04-13] MEDS ORDERED: NITROGLYCERIN SL TABS 0.4 MG TAB SUBLINGUAL PRN (11:16)
[2023-04-13] MEDS ORDERED: MAG HYDROX/AL HYDROX/SIMETH 30 ML CUP PO PRN (11:16)
[2023-04-13] MEDS ORDERED: ZOLPIDEM 5 MG TAB PO PRN (11:16)
[2023-04-13] MEDS ORDERED: RX INFO: IV CONTRAST WAS GIVEN 1 EACH MISC MISCELLANE PRN (11:16)
[2023-04-13] MEDS ORDERED: ATROPINE SULFATE 0.1 MG/ML 10ML SYRINGE IV PRN (11:16)
--- NOTE | 2023-04-13 11:21 | P.PCN ---
Date of Procedure: 04/13/23 Operative Findings: CARDIAC CATHETERIZATION AND PERCUTANEOUS CORONARY INTERVENTION PERFORMING PHYSICIAN: Hang Lopez MD, [facility] PROCEDURE PERFORMED: 1. Selective right and left coronary angiogram 2. Left heart catheterization 3. Successful stenting of mid and ostial RCA using 2.75 x 28 and 3.25 x 18 mm Xience RAJESH with an excellent angiographic results with adjunctive use of intravascular imaging 4. Ultrasound guided access of the right radial artery INDICATION: Non-ST elevation myocardial infarction COMPLICATION: None APPROACH: Right radial artery LEVEL OF SEDATION: Moderate with the sedation time off 41 minutes PROCEDURE DESCRIPTION: After obtaining an informed consent the patient was brought to the cardiac labor standards director. The right radial artery was cannulated using micropuncture technique under ultrasound guidance, the micropuncture wire passed easily then I placed a 6- [place] sheath. After that I did selective right and left coronary angiogram using JR4 and JL 3.5 catheters. Left heart catheterization was performed using the JL4 catheter which across aortic valve then I did pullback across the valve. After that I did intervene on the right coronary artery. The procedure was completed was no complication SELECTIVE CORONARY ANGIOGRAM: The right coronary artery: Large caliber vessel and a dominant vessel. The RCA has ostial lesion appeared to be in the range of 99.9% and mid lesion appeared to be in the range of 80-90% Left main: Is angiographically normal. Bifurcates into an LCx and LAD The left circumflex: Large caliber vessel nondominant vessel with intermediate lesion in the midportion The left anterior descending artery: The LAD in the midportion has intermediate lesion as well as proximally has intermediate lesion HEMODYNAMICS: The LVEDP was 20 mmHg was no significant gradient across aortic valve PCI OF THE RCA: Anticoagulation was initiated using heparin with continuous ACT monitoring. I did engage the RCA using JR4 guide with a sidehole. Subsequently I wire the RCA using a run-through wire. Advancing the IVUS catheter was difficult after the ostial right coronary artery but the ostial appeared to be calcified with a diameter around 3.5 mm. Subsequently I did wire the RCA using a cheryl wire with a run-through wire for anchoring. Predilatation was performed using 2.5 mm noncompliant balloon before I deployed distally 2.75 x 28 mm in the proximal/ostium I deployed 3.25 x 18 mm. I flared the ostium. Final angiogram showed good angiographic results and the procedure was completed was no complication CONCLUSION: Critical disease involving the ostial and mid right coronary artery. I did perform successful stenting of both the ostium and mid with a good angiographic results Intermediate disease involving the left coronary system Elevated left-sided filling pressure POSTPROCEDURE MANAGEMENT: 1. Dual antiplatelet therapy using aspirin and Plavix for 12 month 2. Aggressive cholesterol control 3. Follow-up with the patient
[2023-04-13] MEDS ORDERED: IOPAMIDOL-370 100ML BTL INJ ONE (11:22)
[2023-04-13] MEDS ORDERED: SODIUM CHLORIDE 0.9% 1,000 ML in EMPTY BAG 1 BAG IV SCH (11:30)
[2023-04-13] MEDS: AMIODARONE 450 MG in DEXTROSE 5% IN WATER 250 ML IV SCH ×2 (11:43)
[2023-04-13] MEDS: AMIODARONE 200 MG TAB PO SCH ×2 (13:10→20:35)
[2023-04-13 13:57] VITALS: BMI 16.8
--- NOTE | 2023-04-13 14:54 | P.PN ---
Subjective Progress Note Date: 04/13/23 History of present illness: The patient is an 82-year-old female who presented to the emergency room with new onset of chest discomfort. She states awoke in the middle of the night on Thursday with new onset of chest discomfort. Throughout the next day the pain continued and she also reported progressive shortness of breath. At the time of my examination she was resting comfortably in bed. She states she does feel the pain and has shortness of breath when ambulating around the room. Just after our evaluation, nursing staff reported that the patient went into A. fib with RVR. Verbal orders to start amiodarone were given. DIAGNOSTICS: EKG shows sinus mechanism with DC depression Echocardiogram reveals hyperdynamic LV function and LVH Telemetry revealed new onset of A. fib with RVR Chest x-ray shows COPD and chronic appearing changes. No acute process Lab data: 12.4, hemoglobin 13.9, hematocrit 42.1, platelet 159, d-dimer 0.58, sodium 138, potassium 4.5, BUN 28, creatinine 1.4, AST 40, ALT 24, troponin 4.7, 4.6, 4.9 04/13 Patient is seen today in follow-up. Family members at bedside. She is scheduled for cardiac catheterization today with Dr. Lopez. She denies having any chest pain. She has remained on amiodarone drip for atrial fibrillation but has converted to sinus rhythm in the 50s. PHYSICAL EXAMINATION: This is a 82-year-old female in no apparent distress at the time of my examination. HEENT: Head is atraumatic, normocephalic. Pupils are equal, round. Sclerae anicteric. Conjunctivae are clear. CHEST EXAMINATION: Lungs are diminished to auscultation. No chest wall tenderness is noted on palpation or with deep breathing. HEART EXAMINATION: Heart regular rate and rhythm. S1, S2 heard. No murmurs, gallops or rub. ABDOMEN: Soft, nontender. EXTREMITIES: 2+ peripheral pulses with no evidence of peripheral edema and no calf tenderness noted. NEUROLOGIC EXAMINATION: Patient is awake, alert and oriented x3. FINAL ASSESSMENT AND PLAN: Non-Q-wave myocardial infarction LVH Paroxysmal atrial fibrillation, new onset Acute kidney injury Dyslipidemia Current smoker PLAN: Continue amiodarone drip for new onset of atrial fibrillation Cardiac catheterization today Further recommendations following catheterization. Nurse practitioner note has been reviewed, I agree with the documented findings and plan of care. Patient was seen and examined. Objective - Vital Signs Vital signs: Vital Signs Temp 97.2 F L 04/13/23 11:33 Pulse 56 L 04/13/23 11:33 Resp 16 04/13/23 11:33 BP 106/62 04/13/23 11:33 Pulse Ox 96 04/13/23 11:33 FiO2 Intake & Output 04/12/23 04/13/23 04/13/23 18:59 06:59 18:59 Intake Total 494.44 125.56 425.418 Balance 494.44 125.56 425.418 Intake: IV 10 150 Invasive Line 2 10 Intake, IV Titration 124.44 125.56 275.418 Amount Amiodarone 450 mg In 250 Dextrose 5% in Water 250 ml @ 0.5 MG/MIN 16.667 mls/hr IV .Q15H DOUGLAS Rx#: [id number] Heparin Sod,Pork in 0.45% 124.44 125.56 25.418 NaCl 25,000 unit In 0.45 % NaCl 1 250ml.bag @ 12 UNITS/KG/HR 5.77 mls/hr IV .Q24H DOUGLAS Rx#: [id number] Oral 360 Other: Voiding Method Toilet Toilet # Voids 2 1 1 - Labs CBC & Chem 7: 04/13/23 08:03 04/13/23 08:03 Labs: Abnormal Lab Results - Last 24 Hours (Table) 04/12/23 04/12/23 04/13/23 Range/Units 09:09 17:25 06:09 RBC (3.80-5.40) m/uL Plt Count (150-450) k/uL APTT 43.8 H (22.0-30.0) sec Sodium (137-145) mmol/L Carbon Dioxide (22-30) mmol/L BUN (7-17) mg/dL Creatinine (0.52-1.04) mg/dL Glucose (74-99) mg/dL POC Glucose (mg/dL) 146 H (70-110) mg/dL Calcium (8.4-10.2) mg/dL AST (14-36) U/L ALT (4-34) U/L Total Protein (6.3-8.2) g/dL Albumin (3.5-5.0) g/dL HDL Cholesterol 68.00 H (40.00-60.00) mg/dL 04/13/23 04/13/23 04/13/23 Range/Units 08:03 08:03 08:03 RBC 3.65 L (3.80-5.40) m/uL Plt Count 141 L (150-450) k/uL APTT 39.0 H (22.0-30.0) sec Sodium 134 L (137-145) mmol/L Carbon Dioxide 20 L (22-30) mmol/L BUN 37 H (7-17) mg/dL Creatinine 1.56 H (0.52-1.04) mg/dL Glucose 116 H (74-99) mg/dL POC Glucose (mg/dL) (70-110) mg/dL Calcium 8.2 L (8.4-10.2) mg/dL AST 57 H (14-36) U/L ALT 54 H (4-34) U/L Total Protein 5.8 L (6.3-8.2) g/dL Albumin 3.2 L (3.5-5.0) g/dL HDL Cholesterol (40.00-60.00) mg/dL
--- NOTE | 2023-04-13 17:27 | P.PN ---
Subjective Progress Note Date: 04/13/23 Maria L Smith, is an 82-year-old female patient of Dr. Gomez, who presented to [facility] emergency room with a chief complaint of upper back pain, that started at 1 AM, initially patient thought that she has pulled a muscle, however her pain worsened, and was increasing with movement and taking deep breath, she decided to come to emergency room for further evaluation. She was evaluated in the emergency room vital examination on presentation revealed a temperature of 98.2 pulse 112 respiration 17 blood pressure 112/77 pulse ox 98% on room air Laboratory data reveals a white blood count of 12.4 hemoglobin 13.9 platelet count 159 d-dimer 0.59 BUN 28 creatinine 1.4 troponin level 4.73 Testing in the emergency room revealed EKG done in the emergency room revealed sinus tachycardia with right atrial enlargement and left atrial enlargement,, and ST depression in anterior leads, chest x-ray revealed COPD and chronic appearing changes no acute process seen. Patient was admitted to medical floor for further evaluation and treatment. Patient has a known history of hyperlipidemia and chronic tobacco use, she is somewhat maintained on Lipitor 40 mg by mouth daily otherwise she denies any medical problems and denies taking any other medications. On 04/12/2023 patient is alert and oriented 3. Patient remains on heparin drip. Awaiting cardiology input. Current vital signs temp 98.1, heart rate 84, respiratory rate 14, blood pressure 94/54. On 04/13/2023 patient was seen and examined on the telemetry floor she is alert and oriented 3 in no apparent distress there is no fever or chills no headache or dizziness no new episodes of chest pain no shortness of breath no cough no nausea or vomiting no abdominal pain no diarrhea and no urinary symptoms. Patient underwent cardiac catheterization with angioplasty and stent placement to the RCA today, will continue to monitor possible discharge to home tomorrow if stable. Objective - Vital Signs Vital signs: Vital Signs Temp 97.2 F L 04/13/23 11:48 Pulse 56 L 04/13/23 12:48 Resp 16 04/13/23 12:48 BP 93/60 04/13/23 12:48 Pulse Ox 96 04/13/23 12:48 FiO2 Intake & Output 04/12/23 04/13/23 04/13/23 18:59 06:59 18:59 Intake Total 494.44 125.56 543.418 Balance 494.44 125.56 543.418 Weight 44.5 kg Intake: IV 10 150 Invasive Line 2 10 Intake, IV Titration 124.44 125.56 275.418 Amount Amiodarone 450 mg In 250 Dextrose 5% in Water 250 ml @ 0.5 MG/MIN 16.667 mls/hr IV .Q15H DOUGLAS Rx#: [id number] Heparin Sod,Pork in 0.45% 124.44 125.56 25.418 NaCl 25,000 unit In 0.45 % NaCl 1 250ml.bag @ 12 UNITS/KG/HR 5.77 mls/hr IV .Q24H DOUGLAS Rx#: [id number] Oral 360 118 Other: Voiding Method Toilet Toilet # Voids 2 1 1 - Exam In general patient is alert and oriented x 3 in no distress HEENT head normocephalic and atraumatic Neck is supple no JVD no goiter no lymphadenopathy no carotid bruit Chest examination is clear to auscultation no crackles no wheezing Cardiac exam reveals regular heart sounds S1 and S2 no gallops no murmurs Abdomen is soft nontender no organomegaly with normal bowel sounds Extremity exam reveals no edema no cyanosis or clubbing Neurological examination reveals no gross focal deficits - Labs CBC & Chem 7: 04/13/23 08:03 04/13/23 08:03 Labs: Abnormal Lab Results - Last 24 Hours (Table) 04/12/23 04/13/23 04/13/23 Range/Units 17:25 06:09 08:03 RBC 3.65 L (3.80-5.40) m/uL Plt Count 141 L (150-450) k/uL APTT 43.8 H (22.0-30.0) sec Sodium (137-145) mmol/L Carbon Dioxide (22-30) mmol/L BUN (7-17) mg/dL Creatinine (0.52-1.04) mg/dL Glucose (74-99) mg/dL POC Glucose (mg/dL) 146 H (70-110) mg/dL Calcium (8.4-10.2) mg/dL AST (14-36) U/L ALT (4-34) U/L Total Protein (6.3-8.2) g/dL Albumin (3.5-5.0) g/dL 04/13/23 04/13/23 Range/Units 08:03 08:03 RBC (3.80-5.40) m/uL Plt Count (150-450) k/uL APTT 39.0 H (22.0-30.0) sec Sodium 134 L (137-145) mmol/L Carbon Dioxide 20 L (22-30) mmol/L BUN 37 H (7-17) mg/dL Creatinine 1.56 H (0.52-1.04) mg/dL Glucose 116 H (74-99) mg/dL POC Glucose (mg/dL) (70-110) mg/dL Calcium 8.2 L (8.4-10.2) mg/dL AST 57 H (14-36) U/L ALT 54 H (4-34) U/L Total Protein 5.8 L (6.3-8.2) g/dL Albumin 3.2 L (3.5-5.0) g/dL Assessment and Plan Plan: Acute upper back pain Elevated troponin level Underlying history of hyperlipidemia Underlying history of tobacco use At this time patient was evaluated in emergency room and started on IV heparin Home medications reviewed and reordered Serial EKG and cardiac enzymes ordered Echocardiogram ordered cardiology consultation requested Will follow closely
[2023-04-13] MEDS: APIXABAN 2.5 MG TABLET PO SCH (20:35)
[2023-04-14] MEDS: SODIUM CHLORIDE 0.9% 1,000 ML IV SCH (01:44)
[2023-04-14] MEDS: ATORVASTATIN 80 MG TAB PO SCH (08:02)
[2023-04-14] MEDS: APIXABAN 2.5 MG TABLET PO SCH (08:02)
[2023-04-14] MEDS: ASPIRIN 81 MG PO SCH (08:02)
[2023-04-14] MEDS: AMIODARONE 200 MG TAB PO SCH (08:03)
[2023-04-14 08:26] VITALS: BP 118/61; PULSE 88; RESP 17; TEMP 97.4
[2023-04-14 08:29] LABS: HCT 37.4 % (34.0-46.0); HGB 12.1 gm/dL (11.4-16.0); MCH 32.2 pg (25.0-35.0); MCHC 32.4 g/dL (31.0-37.0); MCV 99.3 fL (80.0-100.0); Mean Platelet Volume 8.3; Platelet Count 212 k/uL (150-450); RBC 3.76 m/uL (3.80-5.40); RDW 12.9 % (11.5-15.5); WBC 7.4 k/uL (3.8-10.6)
[2023-04-14 08:42] LABS: African American GFR (CKD) 40 (>60 ml/min/1.73 sqM); Anion Gap 11 mmol/L; Blood Urea Nitrogen 31 mg/dL (7-17); Calcium 8.9 mg/dL (8.4-10.2); Carbon Dioxide 23 mmol/L (22-30); Chloride 106 mmol/L (98-107); Glucose 111 mg/dL (74-99); Non-African American GFR(CKD) 34 (>60 ml/min/1.73 sqM); Potassium 3.9 mmol/L (3.5-5.1); Sodium 140 mmol/L (137-145)
[2023-04-14] MEDS ORDERED: CLOPIDOGREL 75 MG TAB PO SCH (09:00)
[2023-04-14] MEDS ORDERED: AMIODARONE 200 MG TAB PO SCH (09:00)
--- NOTE | 2023-04-14 10:05 | P.DS ---
Providers Date of admission: 04/11/23 12:57 Expected date of discharge: 04/14/23 Attending physician: Karyn Meza Consults: 04/11/23 12:57 Consult Physician Urgent Consulting Provider: Renzo Pichardo Consult Reason/Comments: nstemi Do you want consulting provider notified?: Yes 04/13/23 11:16 Consult Physician Routine Consulting Provider: [facility] Consult Reason/Comments: Post Interventional Patient Do you want consulting provider notified?: Already Contacted Primary care physician: Willy Gomez [facility] Course: Discharge diagnosis Acute upper back pain Elevated troponin level non-Q-wave myocardial infarction New onset paroxysmal atrial fibrillation Underlying history of hyperlipidemia Underlying history of tobacco use Hospital course Maria L Smith, is an 82-year-old female patient of Dr. Gomez, who presented to [facility] emergency room with a chief complaint of upper back pain, that started at 1 AM, initially patient thought that she has pulled a muscle, however her pain worsened, and was increasing with movement and taking deep breath, she decided to come to emergency room for further evaluation. She was evaluated in the emergency room vital examination on presentation revealed a temperature of 98.2 pulse 112 respiration 17 blood pressure 112/77 pulse ox 98% on room air Laboratory data reveals a white blood count of 12.4 hemoglobin 13.9 platelet count 159 d-dimer 0.59 BUN 28 creatinine 1.4 troponin level 4.73 Testing in the emergency room revealed EKG done in the emergency room revealed sinus tachycardia with right atrial enlargement and left atrial enlargement,, and ST depression in anterior leads, chest x-ray revealed COPD and chronic appearing changes no acute process seen. Patient was admitted to medical floor for further evaluation and treatment. Patient has a known history of hyperlipidemia and chronic tobacco use, she is somewhat maintained on Lipitor 40 mg by mouth daily otherwise she denies any medical problems and denies taking any other medications. On 04/12/2023 patient is alert and oriented 3. Patient remains on heparin dri p. Awaiting cardiology input. Current vital signs temp 98.1, heart rate 84, respiratory rate 14, blood pressure 94/54. On 04/13/2023 patient was seen and examined on the telemetry floor she is alert and oriented 3 in no apparent distress there is no fever or chills no headache or dizziness no new episodes of chest pain no shortness of breath no cough no nausea or vomiting no abdominal pain no diarrhea and no urinary symptoms. Patient underwent cardiac catheterization with angioplasty and stent placement to the RCA today, will continue to monitor possible discharge to home tomorrow if stable. On 04/14/2023 patient is alert and oriented 3. Discussed case with cardiology services. Patient cleared for discharge from cardiology standpoint. Patient went into new onset atrial fibrillation. Patient was started on amiodarone. Per cardiology services patient continue on eliquis Plavix and aspirin for 30 days and then DC aspirin and continue on Plavix and eliquis. At this time patient denies chest pain or shortness of breath. Patient denies nausea vomiting or diarrhea. Patient denies any urinary burning or frequency Patient Condition at Discharge: Stable Plan - Discharge Summary Discharge Rx Participant: No New Discharge Prescriptions: New Apixaban [Eliquis] 2.5 mg PO BID 30 Days #60 tab Clopidogrel [Plavix] 75 mg PO DAILY 30 Days #30 tab Aspirin 81 mg PO DAILY 30 Days #30 tab Amiodarone [Cordarone] 200 mg PO BID 30 Days #60 tab Atorvastatin [Lipitor] 80 mg PO DAILY 30 Days #30 tab Discontinued Pravastatin Sodium [Pravachol] 40 mg PO HS Discharge Medication List Amiodarone [Cordarone] 200 mg PO BID 30 Days #60 tab 04/14/23 [Rx] Apixaban [Eliquis] 2.5 mg PO BID 30 Days #60 tab 04/14/23 [Rx] Aspirin 81 mg PO DAILY 30 Days #30 tab 04/14/23 [Rx] Atorvastatin [Lipitor] 80 mg PO DAILY 30 Days #30 tab 04/14/23 [Rx] Clopidogrel [Plavix] 75 mg PO DAILY 30 Days #30 tab 04/14/23 [Rx] Follow up Appointment(s)/Referral(s): Renzo Pichardo MD [STAFF PHYSICIAN] - 2 Weeks Willy Gomez MD [Primary Care Provider] - 1-2 days Activity/Diet/Wound Care/Special Instructions: Activity as tolerated Diet heart healthy
--- NOTE | 2023-04-14 12:20 | P.PN ---
Subjective Progress Note Date: 04/14/23 History of present illness: The patient is an 82-year-old female who presented to the emergency room with new onset of chest discomfort. She states awoke in the middle of the night on Thursday with new onset of chest discomfort. Throughout the next day the pain continued and she also reported progressive shortness of breath. At the time of my examination she was resting comfortably in bed. She states she does feel the pain and has shortness of breath when ambulating around the room. Just after our evaluation, nursing staff reported that the patient went into A. fib with RVR. Verbal orders to start amiodarone were given. DIAGNOSTICS: EKG shows sinus mechanism with DE depression Echocardiogram reveals hyperdynamic LV function and LVH Telemetry revealed new onset of A. fib with RVR Chest x-ray shows COPD and chronic appearing changes. No acute process Lab data: 12.4, hemoglobin 13.9, hematocrit 42.1, platelet 159, d-dimer 0.58, sodium 138, potassium 4.5, BUN 28, creatinine 1.4, AST 40, ALT 24, troponin 4.7, 4.6, 4.9 04/13 Patient is seen today in follow-up. Family members at bedside. She is scheduled for cardiac catheterization today with Dr. Lopez. She denies having any chest pain. She has remained on amiodarone drip for atrial fibrillation but has converted to sinus rhythm in the 50s. 04/14 The patient is status post cardiac catheterization yesterday with Dr. 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 He performed successful stenting of both the ostium in the mid right coronary artery. Patient to continue dual antiplatelet therapy with aspirin and Plavix for 12 months and aggressive cholesterol control. The patient denies having any chest pain this morning. There was concern of abnormal telemetry EKG revealed multifocal atrial rhythm. She is on oral amiodarone at 400 mg twice daily. Bl ood pressure 118/61, heart rate in the 50s to 80s, pulse ox 96% on room air. Repeat blood work reveals potassium 3.9, BUN 31 creatinine 1.42. PHYSICAL EXAMINATION: This is a 82-year-old female in no apparent distress at the time of my examination. HEENT: Head is atraumatic, normocephalic. Pupils are equal, round. Sclerae anicteric. Conjunctivae are clear. CHEST EXAMINATION: Lungs are diminished to auscultation. No chest wall tenderness is noted on palpation or with deep breathing. HEART EXAMINATION: Heart regular rate and rhythm. S1, S2 heard. No murmurs, gallops or rub. ABDOMEN: Soft, nontender. EXTREMITIES: 2+ peripheral pulses with no evidence of peripheral edema and no calf tenderness noted. NEUROLOGIC EXAMINATION: Patient is awake, alert and oriented x3. FINAL ASSESSMENT AND PLAN: Non-Q-wave myocardial infarction LVH Paroxysmal atrial fibrillation, new onset Acute kidney injury Dyslipidemia Current smoker PLAN: Continue amiodarone decreased to 200 mg twice daily Continue other cardiac medications Patient is cleared for discharge and will follow-up with Dr. Pichardo 1-2 weeks. Nurse practitioner note has been reviewed, I agree with the documented findings and plan of care. Patient was seen and examined. Objective - Vital Signs Vital signs: Vital Signs Temp 97.4 F L 04/14/23 08:00 Pulse 88 04/14/23 08:00 Resp 17 04/14/23 08:00 BP 118/61 04/14/23 08:00 Pulse Ox 96 04/14/23 08:13 FiO2 Intake & Output 04/13/23 04/14/23 04/14/23 18:59 06:59 18:59 Intake Total 723.418 0 Balance 723.418 0 Weight 44.5 kg Intake: IV 150 Intake, IV Titration 275.418 Amount Amiodarone 450 mg In 250 Dextrose 5% in Water 250 ml @ 0.5 MG/MIN 16.667 mls/hr IV .Q15H DOUGLAS Rx#: [id number] Heparin Sod,Pork in 0.45% 25.418 NaCl 25,000 unit In 0.45 % NaCl 1 250ml.bag @ 12 UNITS/KG/HR 5.77 mls/hr IV .Q24H DOUGLAS Rx#: [id number] Oral 298 0 Other: Voiding Method Toilet Toilet # Voids 1 2 - Labs CBC & Chem 7: 04/14/23 08:00 04/14/23 08:00 Labs: Abnormal Lab Results - Last 24 Hours (Table) 04/13/23 04/13/23 04/13/23 Range/Units 08:03 08:03 08:03 RBC 3.65 L (3.80-5.40) m/uL Plt Count 141 L (150-450) k/uL APTT 39.0 H (22.0-30.0) sec Sodium 134 L (137-145) mmol/L Carbon Dioxide 20 L (22-30) mmol/L BUN 37 H (7-17) mg/dL Creatinine 1.56 H (0.52-1.04) mg/dL Glucose 116 H (74-99) mg/dL Calcium 8.2 L (8.4-10.2) mg/dL AST 57 H (14-36) U/L ALT 54 H (4-34) U/L Total Protein 5.8 L (6.3-8.2) g/dL Albumin 3.2 L (3.5-5.0) g/dL 04/14/23 04/14/23 Range/Units 08:00 08:00 RBC 3.76 L (3.80-5.40) m/uL Plt Count (150-450) k/uL APTT (22.0-30.0) sec Sodium (137-145) mmol/L Carbon Dioxide (22-30) mmol/L BUN 31 H (7-17) mg/dL Creatinine 1.42 H (0.52-1.04) mg/dL Glucose 111 H (74-99) mg/dL Calcium (8.4-10.2) mg/dL AST (14-36) U/L ALT (4-34) U/L Total Protein (6.3-8.2) g/dL Albumin (3.5-5.0) g/dL
--- NOTE | 2023-04-15 16:14 | CDI ---
Documentation Clarification Form Date: 04/15/2023 03:56:11 PM From: Cortney Harvey RN, CCDS Email: [email or web address] Admit Date: 04/11/2023 12:57:00 PM Patient Name: Maria L Smith Visit Number: [id number] Discharge Date: 04/14/2023 11:12:00 AM ATTENTION: The Clinical Documentation Specialists (CDI) and [facility] Coding Staff appreciate your assistance in clarifying documentation. Please respond to the clarification below the line at the bottom and electronically sign. The CDI & [facility] Coding staff will review the response and follow-up if needed. Please note: Queries are made part of the Legal Health Record. If you have any questions, please contact the author of this message via ITS. Dr. Karyn Meza Your patient had a non Q wave myocardial infarction, tachycardia, elevated white count and Cr level. Based on this information and the findings below, is there an additional diagnosis that is clinically appropriate for this patient? History/Risk Factors: HLD and chronic tobacco abuse. Presented with upper back pain. Found to have elevated troponins and non-Q wave GA. S/P drug eluting stent. Clinical Indicators: 04/11 HR [phone], BP 83/52 04/12 HR 116 04/11 WBC: 12.4-7.9-7.4 04/11-04/14 Cr: 1.40-1.56-1.42 H&P: "EKG done in the emergency room revealed sinus tachycardia with right atrial enlargement and left atrial enlargement, and ST depression in anterior leads." Cardiology consult: "Acute kidney injury." Treatment: 0.9 NS @100mL/hr 04/12-04/14; s/p drug eluting stent to the RCA Is there an additional diagnosis that is clinically appropriate for this patient? [ ] SIRS, due to non-Q wave myocardial infarction with SAMEERA [ xxx ] Other, please specify Dehydration with acute kidney injury [ ] Unable to determine MTDD
== END 2023-04-14 11:12 | disposition home or self-care (01) | DRG 322 ==
LOC: EC 11:06 → 3SCARD 12:57
PROVIDERS: ADMIT Internal Medicine; ATTEND Internal Medicine
PROC: 027035Z Dilation of Coronary Artery, One Artery with Two Drug-eluting Intraluminal Devices, Percutaneous Approach (ICD-10-PCS; principal; 2023-04-13 08:25)
PROC: 4A023N7 Measurement of Cardiac Sampling and Pressure, Left Heart, Percutaneous Approach (ICD-10-PCS; 2023-04-13 08:25)
PROC: B2111ZZ Fluoroscopy of Multiple Coronary Arteries using Low Osmolar Contrast (ICD-10-PCS; 2023-04-13 08:25)
DX: I21.4 Non-ST elevation (NSTEMI) myocardial infarction (principal); N17.9 Acute kidney failure, unspecified; E78.5 Hyperlipidemia, unspecified; F17.200 Nicotine dependence, unspecified, uncomplicated; G89.29 Other chronic pain; I11.9 Hypertensive heart disease without heart failure; I48.0 Paroxysmal atrial fibrillation; J44.9 Chronic obstructive pulmonary disease, unspecified; Z79.01 Long term (current) use of anticoagulants; Z79.02 Long term (current) use of antithrombotics/antiplatelets; Z79.82 Long term (current) use of aspirin; Z79.899 Other long term (current) drug therapy
CPT/HCPCS: 36415; 71046; 76937; 80048; 80053; 80061; 83036; 83735; 84443; 84484; 85025; 85027; 85049; 85379; 85610; 85730; 92978; 93005; 93306; 93458; 94760; 96374; 96375; 99291

== ENCOUNTER → 2023-08-21 | Outpatient (CLI) | payer MEDICARE, BC ==
[2023-08-22 02:13] LABS: Chol/HDL Ratio 2.02 Ratio; VLDL Calculation 14.64 mg/dL (5.00-40.00)
[2023-08-22 02:14] LABS: ALT 19 U/L (8-44); AST 23 U/L (13-35); Albumin 4.3 g/dL (3.8-4.9); Albumin/Globulin Ratio 1.65 Ratio (1.60-3.17); Alkaline Phosphatase 106 U/L (41-126); BUN/Creat Ratio 12.06 Ratio (12.00-20.00); Blood Urea Nitrogen 19.3 mg/dL (9.0-27.0); Calcium 9.3 mg/dL (8.7-10.3); Carbon Dioxide 27.3 mmol/L (21.6-31.8); Chloride 102 mmol/L (96-109); Globulin 2.6 g/dL (1.6-3.3); Glucose 85 mg/dL (70-110); LDL Cholesterol,Calculated 69.9 mg/dL (0.0-131.0); Potassium 3.7 mmol/L (3.5-5.5); Sodium 141 mmol/L (135-145); Total Bilirubin 0.4 mg/dL (0.3-1.2); Total Protein 6.9 g/dL (6.2-8.2)
== END | disposition home or self-care (01) ==
LOC: LABWHC1 15:19
PROVIDERS: ATTEND Internal Medicine Clinical Cardiac Electrophysiology
DX: I21.9 Acute myocardial infarction, unspecified (principal); I25.10 Atherosclerotic heart disease of native coronary artery without angina pectoris; I48.0 Paroxysmal atrial fibrillation; E78.5 Hyperlipidemia, unspecified
CPT/HCPCS: 36415; 80053; 80061; 84443